=== PATIENT | female | born 1960 | race Two or more races ===

== ENCOUNTER 2019-07-15 05:01 | Day surgery (SDC) | payer OTHER ==
[~2019-07-15 05:01] MED LIST: DIAZEPAM5 MG PO; GABAPENTIN100 M2 PO; LEUCOVORIN CALCI5 MG PO; MELOXICAM15 MG PO; TREXALL5 MG
== END 2019-07-15 11:05 | disposition home or self-care (01) ==
LOC: CIR.AMB 05:01 → ADM 08:30 → CIR.AMB 08:30
DX: D48.5 Neoplasm of uncertain behavior of skin (principal)

== ENCOUNTER 2023-11-20 05:21 | Day surgery (SDC) | payer OTHER ==
[~2023-11-20] VITALS: Ht 157.5 cm; Wt 55.8 kg
[~2023-11-20 05:21] MED LIST changes: +CLIMARA1 EAC1 TD; +LOPRESSOR25 MG PO; +TOPROL XL50 M1 PO; +VITAMIN D310 MCG/1 M PO
[2023-11-20] MEDS ORDERED: DIPHENHYDRAMINE HCL 50 MG/ML VIAL 1ML IV ONE (09:30)
[2023-11-20] MEDS ORDERED: CEFAZOLIN SODIUM 1,000 MG VIAL IV ONE (09:30)
== END 2023-11-20 11:55 | disposition home or self-care (01) ==
LOC: CIR.AMB 05:21
PROVIDERS: ATTEND Orthopaedic Surgery Hand Surgery
DX: D21.11 Benign neoplasm of connective and other soft tissue of right upper limb, including shoulder (principal); R22.31 Localized swelling, mass and lump, right upper limb; Z91.02 Food additives allergy status; Z91.013 Allergy to seafood; I10 Essential (primary) hypertension